=== PATIENT | female | born 1950 | race Caucasian/White ===

== ENCOUNTER → 2023-08-08 | Outpatient (CLI) | payer MEDICARE, OTHER, SELFPAY ==
--- NOTE | 2023-08-08 07:22 | MRI_ITS ---
MRI Abdomen w/ and w/out contrast 08/08/2023 8:11 AM COMPARISON: None CLINICAL HISTORY: LIVER MASS, F/U TO U/S TECHNIQUE: Multiplanar T1 and T2 weighted, diffusion and dynamic post-gadolinium images were obtained through the abdomen before and after administration of 11 cc of IV clariscan. FINDINGS: Liver: Innumerable T1 hypointense/T2 hyperintense masses throughout the liver, some with central necrosis. The largest of these measures 2.5 cm and is in the right hepatic lobe. The liver contour is slightly nodular. Gallbladder: Phrygian cap of the fundus of the gallbladder. Pancreas: In the head/body of the pancreas, there is a 5.5 x 3.7 x 3.7 cm T1 and T2 hypointense mass which is hypoenhancing when compared to the surrounding pancreatic parenchyma. The mass is intimately involved with the branches of the celiac trunk. It is difficult to determine the degree of contact mass has with the superior mesenteric artery and superior mesenteric vein on this MRI. There is associated upstream name pancreatic duct dilatation measuring up to 8 mm in diameter. Spleen: Slightly enlarged. Adrenal Glands: Unremarkable Kidneys: Unremarkable GI Tract: Large hiatal hernia. Multiple loops of small bowel demonstrates circumferential wall thickening, submucosal hyperenhancement and surrounding mesenteric fat stranding. Lymphadenopathy: Upper mesenteric lymphadenopathy. Ascites: Small volume ascites. There is apparent omental thickening. Bones: Severe degenerative changes. MRI/MRI Abd WITH and W/O Contrast IMPRESSION: 6 cm hypoenhancing mass in the head/body of the pancreas with main pancreatic duct dilatation. This is most suspicious for pancreatic adenocarcinoma with metastases to the liver and possibly the omentum. It is difficult to determine the degree of contact mass has with the SMA and SMV, therefore recommend multiphase CT abdomen with and without contrast pancreatic mass protocol for proper staging. Cirrhotic liver with evidence of portal hypertension including splenomegaly, small volume ascites and varices. Findings suspicious for acute enterocolitis. Electronically Signed: Aureliano Kirkpatrick MD at 0:36 EDT ,
[2023-08-08 08:28] LABS: CREATININE FINGERSTICK < 0.9 mg/dL (0.55-1.02); EGFR FINGERSTICK > 60.0000 mL/min (>60)
== END | disposition home or self-care (01) ==
PROVIDERS: PCP Family Medicine; Referring Provider Family Medicine; Visit Provider Family Medicine
DX: R16.0 Hepatomegaly, not elsewhere classified (principal); K86.89 Other specified diseases of pancreas
CPT/HCPCS: 74183; A9575; A4216